=== PATIENT | female | born 1950 | race Caucasian/White ===

== ENCOUNTER 2020-06-27 10:00 | Emergency (ER) | payer MEDICARE, MEDICAID ==
[~2020-06-27] VITALS: Ht 154.9 cm; Wt 48.6 kg
[2020-06-27 10:05] VITALS: BP 138/67
[2020-06-27] MEDS ORDERED: AMOX-117 PO (11:14)
== END 2020-06-27 10:10 | disposition home or self-care (01) ==
LOC: ER 10:01
DX: S61.431A Puncture wound without foreign body of right hand, initial encounter (principal); S61.432A Puncture wound without foreign body of left hand, initial encounter; Z79.2 Long term (current) use of antibiotics; W55.01XA Bitten by cat, initial encounter; Y93.89 Activity, other specified; Y92.89 Other specified places as the place of occurrence of the external cause; Y99.8 Other external cause status
CPT/HCPCS: 99283